=== PATIENT | female | born 2000 | race Caucasian/White ===

== ENCOUNTER 2021-08-27 14:43 | Emergency (ER) | payer MEDICAID ==
[~2021-08-27] VITALS: Ht 152.4 cm; Wt 54.4 kg
[2021-08-27 15:10] VITALS: BP 125/84
[2021-08-27] MEDS ORDERED: IBUPROFEN 600 MG TABLET PO ONE (15:30)
[2021-08-27] MEDS ORDERED: IBUPROFEN 600 MG TABLET ONE (17:12)
--- NOTE | 2021-08-27 17:19 | NUR ---
PATIENT LEFT AFTER PROVIDER EXPLAINED X RAY FINDINGS
== END 2021-08-27 17:20 | disposition home or self-care (01) ==
LOC: ER 14:53
DX: M77.01 Medial epicondylitis, right elbow (principal)
CPT/HCPCS: 73080-TC